=== PATIENT | male | born 1985 | race Caucasian/White ===

== ENCOUNTER 2019-12-09 18:22 | Inpatient (IN) | payer SELFPAY ==
[2019-12-09 19:30] LABS: #Basophils 0.1 thou/uL (0.0-0.2); #Lymphocytes 1.3 thou/uL (1.20-3.40); #Monocytes 1.5 thou/uL (0.11-0.59); #Neutrophils 7.8 thou/uL (1.40-6.50); %Basophils 0.5 % (0.0-1.0); %Eosinophils 0.2 % (0.0-10.0); %Lymphocytes 12.5 % (21.0-51.0); %Monocytes 14.3 % (0.0-10.0); %Neutrophils 72.5 % (42.0-75.0); Hemoglobin 17.6 g/dL (14.0-18.0); Mean Corpuscular HGB CONC 35.8 g/dL (32.0-36.0); Mean Corpuscular Volume 86.4 fL (78.0-98.0); Mean Platelet Volume 9.7 fL (7.4-10.4); Platelet Count 266 thou/uL (130-400); RBC Distribution Width 12.4 % (11.5-14.5); Red Blood Cell (RBC) Count 5.67 mill/uL (4.70-6.10); White Blood Cell (WBC) Count 10.7 thou/uL (4.8-10.8)
[2019-12-09] MEDS ORDERED: Acetaminophen 325 MG TAB PO PRN (19:42)
[2019-12-09] MEDS ORDERED: Ondansetron ODT 4 MG TAB PO PRN (19:42)
[2019-12-09] MEDS ORDERED: Acetaminophen 650 MG Suppository PR PRN (19:42)
[2019-12-09 19:51] LABS: ALT (SGPT) 45 U/L (8-55); AST (SGOT) 33 U/L (5-34); Albumin 4.8 g/dL (3.5-5.0); Alkaline Phosphatase 65 U/L (40-110); Anion Gap 20 mmol/L (10-20); BUN (Urea Nitrogen) 81 mg/dL (8.9-20.6); Bilirubin, Total 1.6 mg/dL (0.2-1.2); Calc. Creatinine Clearance 0 mL/min (70-130); Carbon Dioxide 18 mmol/L (22-29); Chloride 90 mmol/L (98-107); Estimated GFR-MDRD 40; Globulin 2.9 g/dL (2.4-3.5); Glucose 114 mg/dL (70-105); Magnesium 3.8 mg/dL (1.6-2.6); Protein, Total 7.7 g/dL (6.0-8.3); Sodium 125 mmol/L (136-145)
[2019-12-09 19:59] LABS: Potassium 2.9 mmol/L (3.5-5.1)
[2019-12-09] MEDS ORDERED: Sodium Chloride 0.45% 1,000 ML IV SCH (20:00)
[2019-12-09] MEDS ORDERED: Ondansetron PF 4 MG/2 ML Vial ONE (20:17)
[2019-12-09 20:22] LABS: Lactic Acid 0.9 mmol/L (0.5-2.2)
[2019-12-09] MEDS ORDERED: Potassium Chloride 20 MEQ in Premix Bag 1 BAG IVPB SCH (20:45)
[2019-12-09] MEDS ORDERED: Famotidine 20 MG TAB PO SCH (21:00)
--- NOTE | 2019-12-09 21:22 | HP ---
TIME OF ASSESSMENT: 1900 hours. PRIMARY CARE PHYSICIAN: Marylou Villafuerte, DNP, RECORDS MANAGER-. CHIEF COMPLAINT: Persistent nausea and vomiting. HISTORY OF PRESENT ILLNESS: Mr. Mitchell is a 33-year-old gentleman, who presented to the emergency department at [facility] due to persistent nausea and vomiting for the last 3 to 4 days. The patient has been unable to tolerate any oral intake. He states he has vomited multiple times a day and today he has vomited twice. The only thing he is able to tolerate is ice chips. Reports having generalized abdominal discomfort. He has not had any loose stools. No fevers. No chills or sweats. He had laboratory studies done in the emergency department at [facility] and noted to be hypokalemic and hyponatremic. The patient also noted to have TOBIAS with an elevated creatinine of 2.34, GFR of 32, potassium was 2.8, and sodium 122. He was given Zofran for nausea and vomiting, was given 40 mEq of potassium p.o. and 1500 mL of normal saline. The patient transferred here for further management. He did have a chest x-ray done that demonstrated no evidence of acute changes. A CT of the abdomen and pelvis also done showing no evidence of acute process. He had an EKG done at the outside ED, which was reportedly unremarkable. According to his mother, who is in the room with him now, the patient apparently was felt to have issues with gastritis in the past and previously used Carafate, dicyclomine, and PPIs, which they attempted to restart after he developed these symptoms. He had no improvement with these medications. PAST MEDICAL HISTORY: Bipolar. PAST SURGICAL HISTORY: None. SOCIAL HISTORY: The patient reports smoking marijuana occasionally, but has not smoked marijuana for the last week. He denies any other drug use. However, according to ED records, he admitted to the use of methamphetamines and heroin in the past. He denies any recent alcohol use. Denies smoking. ALLERGIES: NO KNOWN DRUG ALLERGIES. CURRENT MEDICATIONS: 1. Promethazine. 2. Carafate. 3. Dicyclomine. 4. Prilosec. PHYSICAL EXAMINATION: GENERAL: The patient appears generally unwell, but is in no acute distress. VITAL SIGNS: Temperature 97.6, pulse 87, respirations 18, O2 saturation 100% on room air. HEENT: Normocephalic and atraumatic. Pupils are equal, round, and reactive to light. Sclerae icterus. Oropharynx is clear, but he has significant stomatitis with cracking of the lips and dry oral mucosa. NECK: Supple. LUNGS: Clear to auscultation. CARDIAC: Regular rate and rhythm. ABDOMEN: Soft with some discomfort to palpation, particularly in the upper abdominal region. He has a voluntary guarding with no rigidity. SKIN: Warm and dry. Reduced turgor. INVESTIGATIONS: As mentioned above in HPI. IMPRESSION AND PLAN: 1. Mr. Mitchell is a 33-year-old gentleman, presenting with hyperemesis, and according to ED note, this is believed to be associated with cannabis use. He is not actively vomiting in the vomitus since earlier today. The patient states for first time he is feeling hungry and would like to eat or drink. We will go ahead and start him on a clear liquid diet and advance as tolerated. We will continue with antiemetics. We will obtain urine drug screen. CT imaging of the abdomen and pelvis was unremarkable, but we will go ahead and obtain a right upper quadrant ultrasound given elevated total bilirubin, though this may be reactive. Lipase added to labs. 2. Acute kidney injury, secondary to severe dehydration. The patient has received fluids at outside ER. Continues to appear clinically dehydrated. We will start gentle hydration with half-normal saline. Fluids will be further managed by Nephrology given hyponatremia. 3. Hyponatremia, secondary to dehydration. Nephrology has been consulted as per discussion with Dr. Hernandez. We will repeat sodium given fluids he received at outside ED and we will continue to monitor sodium. 4. Hypokalemia. We will continue to replace potassium. We will repeat BMP to reassess and we will add magnesium. Monitor and replace electrolytes as needed. 5. Gastrointestinal prophylaxis with famotidine. 6. Deep venous thrombosis prophylaxis with mechanical SCDs. 7. Code status full. 8. Surrogate decision maker is his mother, Anita Mitchell. 9. Case discussed with Dr. Hernandez, who agrees with plan of care as described above. Job ID: [id number] [facility]
[2019-12-09] MEDS ORDERED: Potassium Chloride 40 MEQ in Sodium Chloride 0.9% 250 ML 250 ML IVPB SCH (21:30)
[2019-12-09 21:32] VITALS: BMI 21.4
[2019-12-09] MEDS: Sodium Chloride 0.9% 1,000 ML IV SCH (21:50)
--- NOTE | 2019-12-09 21:53 | CON ---
DATE OF CONSULTATION: 12/09/2019 SERVICE: Nephrology. REASON FOR CONSULTATION: Acute kidney injury and electrolyte derangements. HISTORY OF PRESENT ILLNESS: A 33-year-old male with known history of hyperemesis and bipolar as well as substance abuse, admitted on transfer from [facility] for further evaluation and treatment of intractable nausea and vomiting as well as left lower quadrant abdominal pain. The patient reportedly started having nausea and vomiting since about 4 days ago, which has been persistent, associated with poor oral intake. He later developed left lower quadrant abdominal pain and later on, generalized body ache and cramps. Due to persistence of symptoms, the patient presented to [facility] ER, where he was found to have hyponatremia, hypokalemia, and acute kidney injury and was subsequently transferred over here for further evaluation. Chest x-ray and CT scan performed over there was unremarkable. The patient was treated with normal saline, Zofran, and Toradol. The patient had a similar problem in September and then was advised to stop cannabis use. There was no associated fever or diarrhea, dysuria, or hematuria. The patient also denied hematemesis. The patient also reported weight loss of about 40 pounds since September of this year when he had a similar episode. PAST MEDICAL HISTORY: 1. Hyperemesis. 2. Substance abuse. 3. Bipolar disorder. PAST SURGICAL HISTORY: None. FAMILY HISTORY: Significant for diabetes in mother. SOCIAL HISTORY: The patient has history of drug abuse, but has been sober since about a month ago. He has used heroin, marijuana, and amphetamine. He does not smoke or use alcohol. He lives at home with family. ALLERGIES: NO KNOWN DRUG ALLERGIES REPORTED. PRIOR TO HOSPITAL MEDICATIONS: 1. Dicyclomine. 2. Zofran ODT. REVIEW OF SYSTEMS: A 12-point review of system performed was negative other than pertinent positives and negatives included in the history of present illness. PHYSICAL EXAMINATION: VITAL SIGNS: Blood pressure 152/108, pulse 81, respiratory rate 16, temperature 97.8, pain 4/10, SpO2 of 100% on room air, and pulse 101. GENERAL: Young male, in no obvious distress. Afebrile. Anicteric. Acyanotic. HEENT: Normocephalic and atraumatic. Oral mucosa is dry. NECK: Supple with no JVD. CARDIOVASCULAR: Regular rhythm and rate, but tachycardic. RESPIRATORY: Good air entry bilaterally with no crackle or rhonchi or use of accessory muscles. GI: Flat, soft, and nondistended with normal bowel sounds. Left lower quadrant tenderness appreciated. EXTREMITIES: Grossly normal looking, atraumatic with no edema or erythema. ADVERTISING COORDINATOR: Conscious, alert, and oriented x3 with appropriate mental status. DIAGNOSTIC DATA: Most current labs showed CBC 10.7, hemoglobin 17.6, MCV 86.4, and platelet 266. CMP showed sodium 125, potassium 2.9, chloride 90, CO2 of 18, BUN 81, creatinine 1.94, glucose 114, calcium 9.0, magnesium 3.8, total bilirubin 1.6, AST 33, ALT 45, alkaline phosphatase 65, total protein 7.7, albumin 4.8, and globulin 2.9. CPK is 518. Of note, however, prior CPK was 664. Earlier, sodium was 126 and initial potassium also was 2.8. CT scan of the abdomen and pelvis and chest x-ray performed earlier on in [place] were unremarkable. ASSESSMENT: 1. Acute kidney injury: Due to hemodynamic factors related to volume depletion from intractable vomiting and poor oral intake. 2. Hypokalemia: Most likely due to gastrointestinal losses as well as poor oral intake. 3. Hyponatremia: Due to volume contraction with appropriate ADH secretion. 4. Dehydration with hemoconcentration. 5. Hyperemesis: Most likely related to marijuana use. The patient reported no use in the last one month. Urine drug screen is 3 positive. 6. Polysubstance abuse. The patient has claimed to be sober currently, but urine drug screen was positive for tricyclic, marijuana. 7. Metabolic acidosis due to acute kidney injury. PLAN: 1. We will start IV fluid therapy with normal saline at 100 mL/h. 2. We will also replete serum potassium with 40 mEq of potassium chloride. 3. Agree with clear liquids for now. 4. Antiemetics as needed will be provided. 5. We will avoid nephrotoxic agents. 6. We will monitor electrolytes and replete as indicated. 7. We will recheck renal function test in the morning. 8. Further treatment to follow depending on hospital course. Many thanks for involving us in the care of this patient. We will follow along with you. Job ID: [id number]
[2019-12-09 23:55] LABS: Amphetamine Not Detected (NotDetected); Barbiturates Screen Not Detected (NotDetected); Benzodiazepine Screen Not Detected (NotDetected); Cocaine Metabolite Screen Not Detected (NotDetected); Medtox Control Line Valid? VALID (VALID); Medtox Reader # READER 1; Methadone Not Detected (NotDetected); Methamphetamine Not Detected (NotDetected); Opiate Screen Not Detected (NotDetected); Oxycodone Screen Not Detected (NotDetected); Phencyclidine (PCP) Not Detected (NotDetected); THC/Cannabinoid Screen Detected (NotDetected); Tricyclic Screen Not Detected (NotDetected)
[2019-12-10] MEDS: Ondansetron PF 4 MG/2 ML Vial IVP PRN ×4 (02:34→21:04)
[2019-12-10 04:40] LABS: #Lymphocytes 1.2 thou/uL (1.20-3.40); #Monocytes 1.6 thou/uL (0.11-0.59); #Neutrophils 7.7 thou/uL (1.40-6.50); %Basophils 0.2 % (0.0-1.0); %Eosinophils 0.4 % (0.0-10.0); %Lymphocytes 11.6 % (21.0-51.0); %Monocytes 14.8 % (0.0-10.0); Hemoglobin 16.5 g/dL (14.0-18.0); Mean Corpuscular HGB CONC 35.6 g/dL (32.0-36.0); Mean Corpuscular Hemoglobin 31.3 pg (27.0-31.0); Mean Corpuscular Volume 87.8 fL (78.0-98.0); Mean Platelet Volume 10.1 fL (7.4-10.4); Platelet Count 250 thou/uL (130-400); RBC Distribution Width 12.3 % (11.5-14.5); Red Blood Cell (RBC) Count 5.27 mill/uL (4.70-6.10); White Blood Cell (WBC) Count 10.5 thou/uL (4.8-10.8)
[2019-12-10 04:58] LABS: Anion Gap 16 mmol/L (10-20); BUN (Urea Nitrogen) 52 mg/dL (8.9-20.6); Calc. Creatinine Clearance 92 mL/min (70-130); Calcium 8.4 mg/dL (7.8-10.44); Carbon Dioxide 19 mmol/L (22-29); Chloride 97 mmol/L (98-107); Estimated GFR-MDRD 70; Glucose 114 mg/dL (70-105); Potassium 3.6 mmol/L (3.5-5.1); Sodium 128 mmol/L (136-145)
[2019-12-10] MEDS ORDERED: Famotidine/PF 20 mg/2ml Vial SLOW IVP SCH (09:00)
[2019-12-10] MEDS: Sodium Chloride 0.9% 1,000 ML IV SCH ×3 (09:12→21:07)
[2019-12-10] MEDS: Sodium Bicarbonate Tab 325 MG TAB PO SCH ×3 (09:12→21:57)
--- NOTE | 2019-12-10 09:16 | ULT ---
RIGHT UPPER QUADRANT ULTRASOUND: Date: 12/10/2019 HISTORY: Abdominal pain, nausea, vomiting, constipation, elevated bilirubin. FINDINGS: The pancreas is obscured by overlying bowel gas. The liver, gallbladder, and right kidney are normal. The common duct measures 3.0 mm in diameter. No free fluid is seen in Morison's pouch. IMPRESSION: Poor visualization of the pancreas, otherwise unremarkable exam. POS: [facility]
--- NOTE | 2019-12-10 11:02 | PRG ---
DATE OF SERVICE: 12/10/2019 SERVICE: Nephrology. SUBJECTIVE: A 33-year-old male seen in followup for hyponatremia and acute kidney injury. The patient was admitted due to intractable nausea and vomiting associated with electrolyte derangements. Feeling better. Generalized body aches and cramps have subsided. Denied diarrhea or hematemesis, dysuria or hematuria. OBJECTIVE: VITAL SIGNS: Temperature 97.7, pulse 63, respiratory rate 16, SpO2 of 99% on room air, blood pressure is 138/92. I and O in the last 24 hours showed total intake of 1550 with total output of 750. GENERAL: Young male patient in no distress. Afebrile. Anicteric. Acyanotic. HEENT: Normocephalic, atraumatic. Oral mucosa is moist. CARDIOVASCULAR: Regular rhythm and rate. Normal heart sounds 1 and 2. RESPIRATORY: Good air entry bilaterally with no crackle or rhonchi or use of accessory muscles. GASTROINTESTINAL: Full, soft, nontender, and nondistended with normal bowel sounds. EXTREMITIES: Grossly normal looking, atraumatic with no edema or erythema. CENTRAL NERVOUS SYSTEM: Conscious, alert and oriented x3 with appropriate mental status. DIAGNOSTIC DATA: CBC showed WBC count of 10.5, hemoglobin of 16.5, MCV of 87.8, platelet of 250. Chemistry showed sodium 128, potassium 3.6, chloride 97, CO2 of 19, BUN 52, creatinine 1.20, glucose 114, calcium 8.4. CPK is down to 518 from 664. Creatinine is also down to 1.2 from peak of 2.34. ASSESSMENT: 1. Acute kidney injury: Due to hemodynamic factors related to dehydration, poor oral intake, and increased gastrointestinal losses. 2. Hyponatremia: Due to dehydration with appropriate ADH secretion. 3. Hypokalemia: Due to gastrointestinal losses. 4. Metabolic acidosis: Due to acute kidney injury and gastrointestinal losses. 5. Elevated CPK: Most likely due to dehydration. Cannot rule out mild rhabdomyolysis. 6. Dehydration with hemoconcentration. PLAN: 1. Continue IV fluid therapy with normal saline at 100 mL/hour. 2. We will also start alkali therapy. 3. We will monitor electrolytes and replete as indicated. 4. Diet advancement as per primary attending. Further treatment to follow depending on hospital course. Job ID: [id number]
[2019-12-10] MEDS: Dicyclomine 10 MG CAP PO PRN ×2 (11:06→21:57)
--- NOTE | 2019-12-10 15:42 | PDOC.HOSPP ---
- Subjective Encounter Date: 12/10/19 Encounter Time: 07:00 Subjective: no sob or nausea ate his breakfast and kept it down has abd colic generalized, off and on, very mild is passing flatus - Objective Vital Signs & Weight: Vital Signs (12 hours) Temp Pulse Resp BP BP Pulse Ox 12/10/19 15:30 98.2 F 63 18 159/80 H 99 12/10/19 12:46 96 12/10/19 12:15 98.3 F 62 18 142/82 H 96 12/10/19 11:10 97.9 F 67 16 148/93 H 99 12/10/19 08:10 97.7 F 63 16 138/92 H 99 Weight Admit Weight 162 lb 3.2 oz Weight 162 lb 3.2 oz I&O: 12/09/19 12/10/19 12/11/19 06:59 06:59 06:59 Intake Total 1550 240 Output Total 750 Balance 800 240 Result Diagrams: 12/10/19 04:20 12/10/19 04:20 Hospitalist ROS - Medication Medications: Active Medications Generic Name Dose Route Start Last Admin Trade Name Freq PRN Reason Stop Dose Admin Dicyclomine HCl 10 mg 12/10/19 10:30 12/10/19 11:06 Bentyl PO 10 mg Q6H PRN Administration GI Cramping Sodium Chloride 1,000 mls @ 100 mls/hr 12/09/19 21:15 12/10/19 09:12 Normal Saline 0.9% IV 1,000 mls .Q10H GERALD Administration Ondansetron HCl 4 mg 12/09/19 19:42 12/10/19 11:06 Zofran IVP 4 mg Q6H PRN Administration Nausea/Vomiting Sodium Bicarbonate 650 mg 12/10/19 09:00 12/10/19 14:52 Bicarbonate, Sodium PO 650 mg TID GERALD Administration - Exam General Appearance: awake alert Eye: PERRL, anicteric sclera ENT: no oropharyngeal lesions, moist mucosa Neck: supple, no JVD Heart: RRR, no murmur Respiratory: no wheezes, no rales Gastrointestinal: soft, non-distended, normal bowel sounds, no guarding, no rigidity Extremities: no cyanosis, no edema Neurological: cranial nerve grossly intact, no focal deficits Psychiatric: normal affect, A&O x 3 Hosp A/P (1) Marijuana abuse Code(s): F12.10 - CANNABIS ABUSE, UNCOMPLICATED Status: Acute (2) Intractable nausea and vomiting Code(s): R11.2 - NAUSEA WITH VOMITING, UNSPECIFIED Status: Resolved (3) TOBIAS (acute kidney injury) Code(s): N17.9 - ACUTE KIDNEY FAILURE, UNSPECIFIED Status: Acute (4) Hyponatremia Code(s): E87.1 - HYPO-OSMOLALITY AND HYPONATREMIA Status: Acute (5) Severe dehydration Code(s): E86.0 - DEHYDRATION Status: Acute (6) Abdominal pain Code(s): R10.9 - UNSPECIFIED ABDOMINAL PAIN Status: Acute Qualifiers: Abdominal location: generalized Qualified Code(s): R10.84 - Generalized abdominal pain (7) Bipolar disorder Code(s): F31.9 - BIPOLAR DISORDER, UNSPECIFIED Status: Chronic Qualifiers: Active/Remission status: currently active Psychotic features: with psychotic features - Plan is on iv fluids renal function and electrolytes are slowly getting corrected continue home dose of risperdal (bipolar with hearing voices, no h/o schizoaffective disorder, follows with [facility]) counselled reg stopping thc use was hospitalized for similar issue few months back hemostable to ambulate in room and hallway
[2019-12-10] MEDS ORDERED: Promethazine HCl 12.5 MG in Sodium Chloride 0.9% 50 ML IVPB PRN (20:38)
[2019-12-10] MEDS ORDERED: risperiDONE 1 MG TAB PO SCH (21:00)
[2019-12-10] MEDS: Sucralfate 1 GM TAB PO SCH (21:57)
[2019-12-11 06:45] LABS: Anion Gap 11 mmol/L (10-20); BUN (Urea Nitrogen) 16 mg/dL (8.9-20.6); CK (CPK) 153 U/L (30-200); Calc. Creatinine Clearance 147 mL/min (70-130); Calcium 7.8 mg/dL (7.8-10.44); Carbon Dioxide 26 mmol/L (22-29); Chloride 103 mmol/L (98-107); Estimated GFR-MDRD Greater than 90; Glucose 100 mg/dL (70-105); Potassium 3.3 mmol/L (3.5-5.1); Sodium 137 mmol/L (136-145)
[2019-12-11] MEDS: Sodium Chloride 0.9% 1,000 ML IV SCH (07:14)
[2019-12-11] MEDS: Ondansetron PF 4 MG/2 ML Vial IVP PRN ×2 (07:15→11:19)
[2019-12-11 07:40] LABS: Phosphorus 1.3 mg/dL (2.3-4.7)
[2019-12-11] MEDS ORDERED: Potassium Chloride 20 MEQ/100 ML PREMIX BAG IVPB SCH ×2 (07:45→08:00)
[2019-12-11] MEDS ORDERED: Potassium Phosphate 30 MMOL, Admixture Fee 1 EACH in Sodium Chloride 0.9% 250 ML 250 ML IVPB SCH (07:45)
[2019-12-11] MEDS ORDERED: Potassium Chloride 20 MEQ TAB PO SCH (08:00)
[2019-12-11] MEDS: Dicyclomine 10 MG CAP PO PRN ×2 (08:31→15:16)
[2019-12-11] MEDS: Sucralfate 1 GM TAB PO SCH (08:32)
--- NOTE | 2019-12-11 12:13 | PRG ---
DATE OF SERVICE: 12/11/2019 SERVICE: Nephrology. SUBJECTIVE: A 33-year-old male seen in followup for hyponatremia and acute kidney injury. Nausea and vomiting have subsided and patient is tolerating oral intake. Generalized body ache also has subsided. No new problem. OBJECTIVE: VITAL SIGNS: Temperature 98.2, pulse 70, respiratory rate 14, SpO2 100% on room air, blood pressure is 149/91. I and O in the last 24 hours showed total intake of 1600, no output was recorded. GENERAL: Comfortable male, in no distress. Afebrile. Anicteric. Acyanotic. HEENT: Normocephalic, atraumatic. Oral mucosa is moist. CARDIOVASCULAR: Regular rhythm and rate. Normal heart sounds 1 and 2. RESPIRATORY: Good air entry bilaterally with no obvious crackle or rhonchi or use of accessory muscles. GASTROINTESTINAL: Full, soft, nontender, nondistended with normal bowel sounds. EXTREMITIES: Grossly normal looking, atraumatic with no edema or erythema. CENTRAL NERVOUS SYSTEM: Conscious, alert, oriented x3 with appropriate mental status. Cranial nerves 2 through 12 are grossly intact. The patient is ambulant. DIAGNOSTIC DATA: Chemistry today showed sodium 137, potassium 3.3, chloride 103, CO2 of 26, BUN 16, creatinine 0.75, glucose 100, calcium 7.8, magnesium 2.5, phosphorus 1.3, CPK 153. ASSESSMENT: 1. Acute kidney injury: Due to hemodynamic factors. Resolved. 2. Hyponatremia: Due to volume contraction with appropriate ADH secretion: Resolved. 3. Hypokalemia: Due to poor oral intake. 4. Hypophosphatemia: Due to poor oral intake. 5. Body cramps. Due to hypokalemia, hypophosphatemia. Resolved. 6. Mild rhabdomyolysis: Due to volume depletion, possible hypophosphatemia. Resolved with CPK now 153. PLAN: 1. We will replete serum potassium and phosphorus with potassium phosphate. 2. We will discontinue normal saline as well as sodium bicarbonate. 3. The patient can be discharged from Nephrology point of view. We will sign off at this point. Please call for any clarification. Job ID: [id number]
[2019-12-11 15:58] VITALS: BP 145/87; TEMP 98
--- NOTE | 2019-12-11 19:38 | DIS ---
DATE OF ADMISSION: 12/09/2019 DATE OF DISCHARGE: 12/11/2019 DISCHARGE DISPOSITION: Home. FOLLOWUP: Follow up with primary care physician at [facility] in 1 week. The patient was seen and examined on the day of discharge. Denies any new complaints. Nausea has significantly improved. DISCHARGE MEDICATIONS: Zofran as needed. All other home medications were left unchanged. Lifestyle modification was emphasized. SIGNIFICANT LABORATORY DATA: Sodium 125, phosphorus 1.3, potassium 2.9. Creatinine on admission 1.94, at discharge 0.75. CK on admission 518, at discharge 153. Urine drug screen was positive for cannabis. Urine osmolality 793, serum osmolality 285. BRIEF HOSPITAL COURSE: The patient is a 33-year-old male with cannabis abuse, presented to the emergency room with persistent nausea, vomiting. His workup was consistent with acute kidney injury with multiple electrolyte abnormalities. CT scan of the abdomen was unremarkable. He showed good improvement with IV fluids. His electrolytes have been corrected. Lifestyle modification was emphasized. Repeat labs after 1 week is recommended. Primary care physician advised to follow. FINAL DIAGNOSES: 1. Intractable nausea and vomiting causing severe dehydration. 2. Cannabis abuse. 3. Acute kidney injury, resolved. 4. Hyponatremia. 5. Hypokalemia. 6. Hypophosphatemia. 7. Metabolic acidosis. 8. Generalized abdominal pain on admission secondary to #1, resolved. 9. Bipolar disorder. The patient understands the above plan of care. Job ID: [id number]
== END 2019-12-11 15:59 | disposition home or self-care (01) | DRG 683 ==
LOC: ERS 18:22 → 2NO 21:18 → T4-B 12-10 12:11
PROVIDERS: ADMIT Internal Medicine; ATTEND Internal Medicine
DX: N17.9 Acute kidney failure, unspecified (principal); E87.1 Hypo-osmolality and hyponatremia; E87.2 Acidosis; M62.82 Rhabdomyolysis; F31.9 Bipolar disorder, unspecified; E86.0 Dehydration; E87.6 Hypokalemia; F19.10 Other psychoactive substance abuse, uncomplicated; R79.89 Other specified abnormal findings of blood chemistry; F12.10 Cannabis abuse, uncomplicated; R10.84 Generalized abdominal pain; E83.39 Other disorders of phosphorus metabolism
CPT/HCPCS: 36415; 76705; 80048; 80306; 82550; 83605; 83735; 83930; 83935; 84100; 85025; 93005; 96374; J2405; J3480; J7050; S0028

== ENCOUNTER 2020-03-16 18:15 | Emergency (ER) | payer SELFPAY | END 2020-03-16 18:55 | LOC: ERS 18:15 | DX: F19.90 Other psychoactive substance use, unspecified, uncomplicated (principal); Z04.1 Encounter for examination and observation following transport accident; F17.210 Nicotine dependence, cigarettes, uncomplicated; Z79.899 Other long term (current) drug therapy; V68.4XXA Person boarding or alighting a heavy transport vehicle injured in noncollision transport accident, initial encounter | CPT/HCPCS: 99284 ==

== ENCOUNTER 2022-01-01 02:59 | Emergency (ER) | payer SELFPAY ==
[2022-01-01 03:47] LABS: #Lymphocytes 1.5 thou/uL (1.20-3.40); #Neutrophils 10.8 thou/uL (1.40-6.50); %Basophils 0.2 % (0.0-1.0); %Eosinophils 0.2 % (0.0-10.0); %Lymphocytes 11.2 % (21.0-51.0); %Monocytes 7.5 % (0.0-10.0); %Neutrophils 80.9 % (42.0-75.0); Hemoglobin 17.3 g/dL (14.0-18.0); Mean Corpuscular HGB CONC 32.5 g/dL (32.0-36.0); Mean Corpuscular Hemoglobin 30.2 pg (27.0-31.0); Mean Corpuscular Volume 92.9 fL (78.0-98.0); Mean Platelet Volume 9.2 fL (7.4-10.4); Platelet Count 241 thou/uL (130-400); RBC Distribution Width 12.2 % (11.5-14.5); White Blood Cell (WBC) Count 13.4 thou/uL (4.8-10.8)
[2022-01-01 04:10] LABS: ALT (SGPT) 69 U/L (8-55); AST (SGOT) 34 U/L (5-34); Albumin 4.7 g/dL (3.5-5.0); Alkaline Phosphatase 57 U/L (40-110); Anion Gap 17 mmol/L (10-20); BUN (Urea Nitrogen) 15 mg/dL (8.9-20.6); Bilirubin, Total 0.9 mg/dL (0.2-1.2); CK (CPK) 142 U/L (30-200); Calc. Creatinine Clearance 0 mL/min (70-130); Calcium 9.8 mg/dL (7.8-10.44); Carbon Dioxide 20 mmol/L (22-29); Chloride 107 mmol/L (98-107); Globulin 3.3 g/dL (2.4-3.5); Glucose 117 mg/dL (70-105); Lipase 11 U/L (8-78); Potassium 3.5 mmol/L (3.5-5.1); Sodium 140 mmol/L (136-145)
== END 2022-01-01 05:10 | disposition left against medical advice (07) ==
LOC: ERS 02:59
DX: R10.32 Left lower quadrant pain (principal); F17.210 Nicotine dependence, cigarettes, uncomplicated; Z87.19 Personal history of other diseases of the digestive system
CPT/HCPCS: 36415; 80053; 82550; 83690; 83735; 85025; 99284